=== PATIENT | male | born 1970 | race Caucasian/White ===

== ENCOUNTER 2018-03-01 22:28 | Emergency (ER) | payer OTHER ==
[2018-03-01 22:34] VITALS: BP 126/74; PULSE 103; TEMP 98.3; BMI 30.4
[2018-03-01] MEDS ORDERED: KETOROLAC TROMETHAMINE 60 MG/2 ML VIAL IM ONE (22:48)
[2018-03-01] MEDS ORDERED: KETOROLAC TROMETHAMINE 60 MG/2 ML VIAL ONE (22:49)
--- NOTE | 2018-03-01 23:10 | PDOC ---
History of Present Illness - General Chief Complaint: Pain Stated Complaint: KNEE AND BACK INJURY ([facility]) Time Seen by Provider: 03/01/18 22:47 - History of Present Illness Initial Comments: 03/01/18 23:04 CHIEF COMPLAINT: knee, back pain HISTORY OF PRESENT ILLNESS: 48 yo M [employer] presents to ED s/p injury while working. Patient reports they were "working in the dark when he tripped and felt my left knee buckle and I fell to the ground." Patient reports left knee pain and back pain. Denies loss of bowel or bladder function, loss of sensation to extremities, and reports he has been ambulatory. PAST MEDICAL HISTORY: Denies past medical history FAMILY HISTORY: Denies SOCIAL HISTORY: Denies tobacco, alcohol, illicit drug use. SURGICAL HISTORY: Denies ALLERGIES: No known drug allergies REVIEW OF SYSTEMS General/Constitutional: Denies fever or chills. Denies weakness, weight change. HEENT: Denies change in vision. Denies ear pain or discharge. Denies sore throat. Cardiovascular: Denies chest pain or shortness of breath. Respiratory: Denies cough, wheezing, or hemoptysis. Gastrointestinal: Denies nausea, vomiting, diarrhea or constipation. Denies rectal bleeding. Genitourinary: Denies dysuria, frequency, or change in urination. Musculoskeletal: Left knee pain and low back pain. Skin and breasts: Denies rash or easy bruising. Neurologic: Denies headache, loss of sensation. PHYSICAL EXAM General Appearance: Well-appearing, appropriately dressed. No apparent distress. HEENT: EOMI, PERRLA. No conjunctival pallor. No photophobia, scleral icterus. Respiratory/Chest: Lungs CTAB. Cardiovascular: RRR. S1, S2. Vascular Pulses: Dorsalis-Pedis (R): 2+, Dorsalis-Pedis (L): 2+ Gastrointestinal/Abdominal: Normal bowel sounds. Abdomen soft, non-distended. No tenderness or rebound tenderness. No organomegaly, pulsatile mass, guarding , hernia, hepatomegaly, splenomegaly. Musculoskeletal/Extremities: Palpable muscle spasms to low back. No deformity, swelling, laceration, ecchymosis, to L knee. Normal inspection. FROM of all extremities, normal capillary refill. Pelvis Stable. No CVA tenderness. No tenderness to extremities, pedal edema, swelling, erythema or deformity. Integumentary: Appropriate color, dry, warm. 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 Fully oriented, alert. Appropriate mood/affect. Motor strength 5/5. No appreciable EOM palsy, facial droop or sensory deficit. Past History - Past Medical History Allergies/Adverse Reactions: Allergies Allergy/AdvReac Type Severity Reaction Status Date / Time No Known Allergies Allergy Verified 03/01/18 22:34 Home Medications: Ambulatory Orders Cyclobenzaprine HCl 10 mg PO HS PRN #10 tablet 03/01/18 Diclofenac Sodium 50 mg PO BID #20 tablet. 03/01/18 COPD: No HTN: Yes - Immunization History Immunization Up to Date: No - Suicide/Smoking/Psychosocial Hx Smoking Status: Yes Smoking History: Former smoker Have you smoked in the past 12 months: Yes Number of Cigarettes Smoked Daily: 4 Information on smoking cessation initiated: No 'Breaking Loose' booklet given: 10/01/13 Hx Alcohol Use: No Drug/Substance Use Hx: No Substance Use Type: None *Physical Exam - Vital Signs Last Vital Signs Temp Pulse Resp BP Pulse Ox 98.3 F 103 H 17 126/74 99 03/01/18 22:31 03/01/18 22:31 03/01/18 22:31 03/01/18 22:31 03/01/18 22:31 ED Treatment Course - RADIOLOGY Radiology Studies Ordered: Category Date Time Status KNEE 3 POS-LEFT [RAD] Stat Radiology 03/01/18 22:48 Ordered - Medications Given in the ED: ED Medications Discontinued Medications Generic Name Dose Route Start Last Admin Trade Name Freq PRN Reason Stop Dose Admin Ketorolac Tromethamine 60 mg 03/01/18 22:48 03/01/18 22:55 Toradol Injection - IM 03/01/18 22:49 60 mg ONCE ONE Administration Medical Decision Making - Medical Decision Making 03/02/18 02:05 48 yo M [employer] presents to ED s/p injury while working. -knee x-ray -Toradol Advised patient to take medication as prescribed and follow up with ortho if symptoms persist. Advised patient of signs and symptoms for return to ED. Patient verbalized understanding and agrees to plan. *DC/Admit/Observation/Transfer Diagnosis at time of Disposition: Strain of knee - Discharge Dispostion Disposition: HOME Condition at time of disposition: Stable Decision to Admit order: No - Prescriptions Prescriptions: Cyclobenzaprine HCl 10 mg PO HS PRN #10 tablet PRN Reason: Back Pain Diclofenac Sodium 50 mg PO BID #20 tablet.dr - Referrals Referrals: Kyree Galindo MD [Staff Physician] - - Patient Instructions Printed Discharge Instructions: DI for Knee Sprain Additional Instructions: Please take medications as prescribed and follow up with orthopedics if symptoms persist past 3-5 days. If you develop worsening pain, or develop any new or worsening symptoms, including loss of bowel or bladder function, inability to walk, or loss of sensation to your legs, please return to the ER immediately. - Post Discharge Activity
== END 2018-03-01 23:19 | disposition home or self-care (01) ==
LOC: JERFT 22:28 → JER 22:28 → JERFT 23:19
PROC: 3E0233Z Introduction of Anti-inflammatory into Muscle, Percutaneous Approach (ICD-10-PCS; principal; 2018-03-01)
DX: S86.812A Strain of other muscle(s) and tendon(s) at lower leg level, left leg, initial encounter (principal); S39.82XA Other specified injuries of lower back, initial encounter; M62.830 Muscle spasm of back; W18.39XA Other fall on same level, initial encounter; Y93.89 Activity, other specified; Y92.89 Other specified places as the place of occurrence of the external cause; Y99.0 Civilian activity done for income or pay
CPT/HCPCS: 73562-TC-LT-FY; 99282-25